=== PATIENT | female | born 1995 | race American Indian/Alaskan Native ===

== ENCOUNTER 2019-10-27 09:21 | Day surgery (SDC) | payer MEDICAID ==
[2019-10-27 11:20] LABS: Eosinophils % (Auto) 0.9 % (0.0-4.3); Hematocrit 38.1 % (30.3-42.9); Hemoglobin 12.7 gm/dl (10.1-14.3); Lymphocytes # (Auto) 1.7 K/mm3 (1.2-5.4); Lymphocytes % (Auto) 33.3 % (13.4-35.0); Mean Corpuscular HGB Conc 34 % (30-34); Mean Corpuscular Volume 88 fl (79-97); Monocytes # (Auto) 0.4 K/mm3 (0.0-0.8); Monocytes % (Auto) 7.6 % (0.0-7.3); Platelet Count 303 K/mm3 (140-440); Red Blood Count 4.34 M/mm3 (3.65-5.03); Red Cell Distribution Width 12.9 % (13.2-15.2)
[2019-10-27 11:57] LABS: BUN/Creatinine Ratio 13; Blood Urea Nitrogen 8 mg/dL (7-17); Calcium 9.9 mg/dL (8.4-10.2); Hemolysis Index 8
--- NOTE | 2019-10-27 12:39 | Emergency Department Report ---
ED HPI - General Chief complaint: Vaginal Bleeding Stated complaint: 7 WEEKS PREG, BLEEDING Time Seen by Provider: 10/27/19 11:24 Source: patient Mode of arrival: Ambulatory Limitations: No Limitations - History of Present Illness Initial comments: 24-year-old -[place] female presents with complaints of vaginal bleeding during x3 days. She states she has had light spotting with mild abdominal cramping. She rates her pain as a 5/10 in severity. She is A0. 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 She denies any fever, dysuria, hematuria, urinary frequen cy, vaginal discharge, dyspareunia, or nausea/vomiting/diarrhea. MD Complaint: abdominal pain, vaginal bleeding -: Sudden Associated symptoms: vaginal bleeding. denies: nausea/vomiting, vaginal discharge - Related Data Allergies Allergy/AdvReac Type Severity Reaction Status Date / Time No Known Allergies Allergy Unverified 10/27/19 09:39 ED Review of Systems ROS: Stated complaint: 7 WEEKS PREG, BLEEDING Other details as noted in HPI Constitutional: denies: chills, fever Respiratory: denies: cough, shortness of breath Cardiovascular: denies: chest pain Endocrine: denies: excessive sweating Gastrointestinal: abdominal pain. denies: nausea, vomiting, diarrhea, constipation, hematemesis, melena, hematochezia Musculoskeletal: denies: back pain, joint swelling Skin: denies: rash, lesions Neurological: denies: headache, weakness Hematological/Lymphatic: denies: easy bleeding, easy bruising ED Past Medical Hx - Past Medical History Previous Medical History?: Yes Additional medical history: Childbirth by - Surgical History Past Surgical History?: Yes Additional Surgical History: - Social History Smoking Status: Never Smoker Substance Use Type: Alcohol ED Physical Exam - General Limitations: No Limitations General appearance: alert, in no apparent distress - Head Head exam: Present: atraumatic, normocephalic - Eye Eye exam: Present: normal appearance. Absent: scleral icterus - ENT ENT exam: Present: mucous membranes moist - Neck Neck exam: Present: normal inspection - Respiratory Respiratory exam: Present: normal lung sounds bilaterally. Absent: respiratory distress - Cardiovascular Cardiovascular Exam: Present: regular rate, normal rhythm. Absent: systolic murmur, diastolic murmur, rubs, gallop - GI/Abdominal GI/Abdominal exam: Present: soft, tenderness (Mild suprapubic), normal bowel sounds. Absent: distended, guarding, rebound, rigid - Extremities Exam Extremities exam: Present: normal inspection. Absent: calf tenderness (No swelling/edema noted) - Back Exam Back exam: Present: normal inspection - Neurological Exam Neurological exam: Present: alert, oriented X3 - Psychiatric Psychiatric exam: Present: normal affect, normal mood - Skin Skin exam: Present: warm, dry, intact, normal color. Absent: rash ED Course Vital Signs 10/27/19 10/27/19 10/27/19 09:31 14:01 14:04 Temperature 98.3 F Pulse Rate 78 65 64 Respiratory 18 16 20 Rate Blood Pressure 112/37 Blood Pressure 121/75 [Left] O2 Sat by Pulse 99 100 100 Oximetry ED Medical Decision Making - Lab Data Result diagrams: 10/27/19 10:51 10/27/19 10:51 Lab Results 10/27/19 10/27/19 10/27/19 Range/Units 10:51 10:51 10:51 WBC 5.0 (4.5-11.0) K/mm3 RBC 4.34 (3.65-5.03) M/mm3 Hgb 12.7 (10.1-14.3) gm/dl Hct 38.1 (30.3-42.9) % MCV 88 (79-97) fl MCH 29 (28-32) pg MCHC 34 (30-34) % RDW 12.9 L (13.2-15.2) % Plt Count 303 (140-440) K/mm3 Lymph % (Auto) 33.3 (13.4-35.0) % Ray % (Auto) 7.6 H (0.0-7.3) % Eos % (Auto) 0.9 (0.0-4.3) % Baso % (Auto) 1.0 (0.0-1.8) % Lymph # 1.7 (1.2-5.4) K/mm3 Ray # 0.4 (0.0-0.8) K/mm3 Eos # 0.0 (0.0-0.4) K/mm3 Baso # 0.0 (0.0-0.1) K/mm3 Seg Neutrophils % 57.2 (40.0-70.0) % Seg Neutrophils # 2.8 (1.8-7.7) K/mm3 PT (12.2-14.9) Sec. INR (0.87-1.13) APTT (24.2-36.6) Sec. Sodium (137-145) mmol/L Potassium (3.6-5.0) mmol/L Chloride (98-107) mmol/L Carbon Dioxide (22-30) mmol/L Anion Gap mmol/L BUN (7-17) mg/dL Creatinine (0.7-1.2) mg/dL Estimated GFR ml/min BUN/Creatinine Ratio % Glucose (65-100) mg/dL Calcium (8.4-10.2) mg/dL HCG, Quant 63399 H (0-4) mIU/mL Urine Color (Yellow) Urine Turbidity (Clear) Urine pH (5.0-7.0) Ur Specific [place] (1.003-1.030) Urine Protein (Negative) mg/dL Urine Glucose (UA) (Negative) mg/dL Urine Ketones (Negative) mg/dL Urine Blood (Negative) Urine Nitrite (Negative) Urine Bilirubin (Negative) Urine Urobilinogen (<2.0) mg/dL Ur Leukocyte Esterase (Negative) Urine WBC (Auto) (0.0-6.0) /HPF Urine RBC (Auto) (0.0-6.0) /HPF U Epithel Cells (Auto) (0-13.0) /HPF Urine Bacteria (Auto) (Negative) /HPF Urine Mucus /HPF Blood Type O NEGATIVE Antibody Screen Cancelled Screen Cancelled 10/27/19 10/27/19 10/27/19 Range/Units 10:51 13:05 13:08 WBC (4.5-11.0) K/mm3 RBC (3.65-5.03) M/mm3 Hgb (10.1-14.3) gm/dl Hct (30.3-42.9) % MCV (79-97) fl MCH (28-32) pg MCHC (30-34) % RDW (13.2-15.2) % Plt Count (140-440) K/mm3 Lymph % (Auto) (13.4-35.0) % Ray % (Auto) (0.0-7.3) % Eos % (Auto) (0.0-4.3) % Baso % (Auto) (0.0-1.8) % Lymph # (1.2-5.4) K/mm3 Ray # (0.0-0.8) K/mm3 Eos # (0.0-0.4) K/mm3 Baso # (0.0-0.1) K/mm3 Seg Neutrophils % (40.0-70.0) % Seg Neutrophils # (1.8-7.7) K/mm3 PT 13.3 (12.2-14.9) Sec. INR 1.00 (0.87-1.13) APTT 27.6 (24.2-36.6) Sec. Sodium 135 L (137-145) mmol/L Potassium 4.6 (3.6-5.0) mmol/L Chloride 100.4 (98-107) mmol/L Carbon Dioxide 20 L (22-30) mmol/L Anion Gap 19 mmol/L BUN 8 (7-17) mg/dL Creatinine 0.6 L (0.7-1.2) mg/dL Estimated GFR > 60 ml/min BUN/Creatinine Ratio 13 % Glucose 77 (65-100) mg/dL Calcium 9.9 (8.4-10.2) mg/dL HCG, Quant (0-4) mIU/mL Urine Color (Yellow) Urine Turbidity (Clear) Urine pH (5.0-7.0) Ur Specific [place] (1.003-1.030) Urine Protein (Negative) mg/dL Urine Glucose (UA) (Negative) mg/dL Urine Ketones (Negative) mg/dL Urine Blood (Negative) Urine Nitrite (Negative) Urine Bilirubin (Negative) Urine Urobilinogen (<2.0) mg/dL Ur Leukocyte Esterase (Negative) Urine WBC (Auto) (0.0-6.0) /HPF Urine RBC (Auto) (0.0-6.0) /HPF U Epithel Cells (Auto) (0-13.0) /HPF Urine Bacteria (Auto) (Negative) /HPF Urine Mucus /HPF Blood Type O NEGATIVE Antibody Screen Negative Screen 10/27/19 Range/Units Unknown WBC (4.5-11.0) K/mm3 RBC (3.65-5.03) M/mm3 Hgb (10.1-14.3) gm/dl Hct (30.3-42.9) % MCV (79-97) fl MCH (28-32) pg MCHC (30-34) % RDW (13.2-15.2) % Plt Count (140-440) K/mm3 Lymph % (Auto) (13.4-35.0) % Ray % (Auto) (0.0-7.3) % Eos % (Auto) (0.0-4.3) % Baso % (Auto) (0.0-1.8) % Lymph # (1.2-5.4) K/mm3 Ray # (0.0-0.8) K/mm3 Eos # (0.0-0.4) K/mm3 Baso # (0.0-0.1) K/mm3 Seg Neutrophils % (40.0-70.0) % Seg Neutrophils # (1.8-7.7) K/mm3 PT (12.2-14.9) Sec. INR (0.87-1.13) APTT (24.2-36.6) Sec. Sodium (137-145) mmol/L Potassium (3.6-5.0) mmol/L Chloride (98-107) mmol/L Carbon Dioxide (22-30) mmol/L Anion Gap mmol/L BUN (7-17) mg/dL Creatinine (0.7-1.2) mg/dL Estimated GFR ml/min BUN/Creatinine Ratio % Glucose (65-100) mg/dL Calcium (8.4-10.2) mg/dL HCG, Quant (0-4) mIU/mL Urine Color Yellow (Yellow) Urine Turbidity Slightly-cloudy (Clear) Urine pH 6.0 (5.0-7.0) Ur Specific [place] 1.027 (1.003-1.030) Urine Protein 30 mg/dl (Negative) mg/dL Urine Glucose (UA) Neg (Negative) mg/dL Urine Ketones 20 (Negative) mg/dL Urine Blood Lg (Negative) Urine Nitrite Neg (Negative) Urine Bilirubin Neg (Negative) Urine Urobilinogen < 2.0 (<2.0) mg/dL Ur Leukocyte Esterase Neg (Negative) Urine WBC (Auto) 2.0 (0.0-6.0) /HPF Urine RBC (Auto) 24.0 (0.0-6.0) /HPF U Epithel Cells (Auto) 10.0 (0-13.0) /HPF Urine Bacteria (Auto) 1+ (Negative) /HPF Urine Mucus 3+ /HPF Blood Type Antibody Screen Screen - Radiology Data Radiology results: report reviewed FINDINGS: GESTATIONAL SAC: No intrauterine . Well-defined gestational sac in the right adnexa. YOLK SAC: Yolk sac visualized in the right adnexa gestational sac. EMBRYO/FETUS: Embryonic pole in the right adnexa gestational sac. - [place]-Rump Length = 1.25 cm = 7.3 weeks.days - Heart Rate, beats per minute (if present) = 203 ADNEXA: Gestational sac containing pole with cardiac activity in the right adnexa. Small left ovarian follicle versus cyst. FREE FLUID: No free fluid or hemorrhage in the pelvis. ADDITIONAL FINDINGS: None. IMPRESSION: 1. No intrauterine . 2. Right adnexal ectopic with estimated sonographic age of 7.3 weeks/days. CRITICAL RESULT: Time of Discovery (FREIGHT RATE ANALYST/CDT): 12:45 PM Time of Communication (FREIGHT RATE ANALYST/CDT): 12:48 PM Licensed Practitioner Receiving Report: Eleazar Soni in the ED Read Back Performed: Yes. - Medical Decision Making 24-year-old female patient here today with vaginal bleeding and lower abdominal cramping pain x 3 days. Hemoglobin = 12.7. Beta-hCG noted to be around 42,000. Right adnexal ectopic with pole noted on ultrasound. Discussed patient with Dr. Kaur, WIRE STITCHER OPERATOR -agrees with ad mission and surgical intervention. NPO orders placed. Vitals are normal and patient is nontoxic-appearing. Critical care attestation.: If time is entered above; I have spent that time in minutes in the direct care of this critically ill patient, excluding procedure time. ED Disposition Clinical Impression: Ectopic of right ovary Disposition: DC-09 OP ADMIT IP TO THIS HOSP Is pt being admited?: Yes Condition: Stable Referrals: PRIMARY CARE, [Primary Care Provider] - 3-5 Days
[2019-10-27 13:39] LABS: Partial Thromboplastin Time 27.6 Sec. (24.2-36.6)
[2019-10-27 13:46] LABS: Bacteria,Urine 1+ /HPF (Negative); Bilirubin,Urine NEG (Negative); Blood,Urine LG (Negative); Color,Urine Yellow (Yellow); Mucus,Urine 3+ /HPF; Urobilinogen,Urine < 2.0 mg/dL (<2.0)
[2019-10-27] MEDS ORDERED: SODIUM CHLORIDE 0.9% 1000 ML 1,000 ML IV ONE (13:52)
--- NOTE | 2019-10-27 13:54 | Ultrasound Report ---
ULTRASOUND OBSTETRIC INDICATION / CLINICAL INFORMATION: vaginal bleeding and cramping. TECHNIQUE: Transabdominal and Transvaginal. COMPARISON: None available. FINDINGS: GESTATIONAL SAC: No intrauterine . Well-defined gestational sac in the right adnexa. YOLK SAC: Yolk sac visualized in the right adnexa gestational sac. EMBRYO/FETUS: Embryonic pole in the right adnexa gestational sac. - [place]-Rump Length = 1.25 cm = 7.3 weeks.days - Heart Rate, beats per minute (if present) = 203 ADNEXA: Gestational sac containing pole with cardiac activity in the right adnexa. Small left o varian follicle versus cyst. FREE FLUID: No free fluid or hemorrhage in the pelvis. ADDITIONAL FINDINGS: None. IMPRESSION: 1. No intrauterine . 2. Right adnexal ectopic with estimated sonographic age of 7.3 weeks/days. CRITICAL RESULT: Time of Discovery (DATA CLERK/CDT): 12:45 PM Time of Communication (DATA CLERK/CDT): 12:48 PM Licensed Practitioner Receiving Report: Eleazar Soni in the ED Read Back Performed: Yes. Signer Name: Shu Burgos MD Signed: 10/27/2019 1:49 PM Workstation Name: [id number]
--- NOTE | 2019-10-27 13:54 | Ultrasound Report ---
ULTRASOUND OBSTETRIC INDICATION / CLINICAL INFORMATION: vaginal bleeding and cramping. TECHNIQUE: Transabdominal and Transvaginal. COMPARISON: None available. FINDINGS: GESTATIONAL SAC: No intrauterine . Well-defined gestational sac in the right adnexa. YOLK SAC: Yolk sac visualized in the right adnexa gestational sac. EMBRYO/FETUS: Embryonic pole in the right adnexa gestational sac. - [place]-Rump Length = 1.25 cm = 7.3 weeks.days - Heart Rate, beats per minute (if present) = 203 ADNEXA: Gestational sac containing pole with cardiac activity in the right adnexa. Small left o varian follicle versus cyst. FREE FLUID: No free fluid or hemorrhage in the pelvis. ADDITIONAL FINDINGS: None. IMPRESSION: 1. No intrauterine . 2. Right adnexal ectopic with estimated sonographic age of 7.3 weeks/days. CRITICAL RESULT: Time of Discovery (ASSISTANT ACCOUNT MANAGER/CDT): 12:45 PM Time of Communication (ASSISTANT ACCOUNT MANAGER/CDT): 12:48 PM Licensed Practitioner Receiving Report: Eleazar Soni in the ED Read Back Performed: Yes. Signer Name: Shu Burgos MD Signed: 10/27/2019 1:49 PM Workstation Name: [id number]
--- NOTE | 2019-10-27 15:01 | History and Physical Report ---
History of Present Illness Date of examination: 10/27/19 Date of admission: 10/27/2019 Chief complaint: Vaginal bleeding and pelvic pain History of present illness: 24yo at ~7 weeks with a right ectopic . Patient with vaginal bleeding and mild pelvic pain. Findings include: +ve right ectopic at ~7+3/7 weeks, +ve pole, +ve cardiac activity BHCG >42,000. H/H: 12.7/38.1 Past History Past Surgical History: section Family/Genetic History: none Social history: no significant social history - Obstetrical History : 2 Para: 1 Medications and Allergies Allergies Allergy/AdvReac Type Severity Reaction Status Date / Time No Known Allergies Allergy Unverified 10/27/19 09:39 Review of Systems All systems: negative (vaginal bleeding and pelvic pain) - Vital Signs Vital signs: Vital Signs Temp Pulse Resp BP Pulse Ox 98.3 F 78 18 112/37 99 10/27/19 09:31 10/27/19 09:31 10/27/19 09:31 10/27/19 09:31 10/27/19 09:31 Temp Pulse Resp BP Pulse Ox 98.3 F 64 20 121/75 100 10/27/19 09:31 10/27/19 14:04 10/27/19 14:04 10/27/19 14:01 10/27/19 14:04 - Physical Exam Breasts: Positive: deferred Cardiovascular: Regular rate Lungs: Positive: Clear to auscultation Abdomen: Positive: normal appearance, soft, tenderness (mild RLQ tenderness to deep palpation) Genitourinary (Female): Positive: normal external genitalia Vagina: Positive: normal moisture Deep Tendon Reflex Grade: Normal +2 Results Result Diagrams: 10/27/19 10:51 10/27/19 10:51 Abnormal lab results 10/27/19 10/27/19 10/27/19 Range/Units 10:51 10:51 10:51 RDW 12.9 L (13.2-15.2) % [place] % (Auto) 7.6 H (0.0-7.3) % Sodium 135 L (137-145) mmol/L Carbon Dioxide 20 L (22-30) mmol/L Creatinine 0.6 L (0.7-1.2) mg/dL HCG, Quant 22485 H (0-4) mIU/mL All other labs normal. Ultrasound: report reviewed, image reviewed Assessment and Plan Right Ectopic Patient counseled for operative vs medical management. I recommend operative management at this time given her BHCG and +ve cardiac activity. She understands the possibility of the need to remove the entire right adnexa depending on the extent of her ectopic. I will try to be as fertility sparing as possible. She is counseling for possible exploratory laparotomy if necessary.I have explained the need for a D&C at the same time for removal of her intrauterine decidual reaction. She acknowledges understanding, is hemodynamically stable and NPO center consultant to the OR. Gurvinder SANTANA
[2019-10-27] MEDS ORDERED: SUCCINYLCHOLINE CHLORIDE 200 MG/10 ML INJ MDV ONE (16:05)
[2019-10-27] MEDS ORDERED: propofoL 200 MG/20 ML VIAL IV ONE (16:05)
[2019-10-27] MEDS ORDERED: fentaNYL 100 MCG/2 ML INJ ONE (16:06)
[2019-10-27] MEDS ORDERED: dexAMETHasone 20 MG/5 ML VIAL ONE (16:06)
[2019-10-27] MEDS ORDERED: ONDANSETRON 4 MG/2 ML INJ ONE (16:06)
--- NOTE | 2019-10-27 16:07 | Anesthesia Day of Surgery ---
Anesthesia Day of Surgery - Day of Surgery Patient Examined: Yes Patient H&P Reviewed: Yes Patient is NPO: No (Mayank an hour ago)
[2019-10-27] MEDS ORDERED: ONDANSETRON 4 MG/2 ML INJ IV PRN ×2 (16:09→18:31)
--- NOTE | 2019-10-27 16:09 | Anesthesia Consultation ---
Anesthesia Consult and Med Hx Date of service: 10/27/19 - Airway Anesthetic Teeth Evaluation: Good ROM Head & Neck: Adequate Mental/Hyoid Distance: Adequate Mallampati Class: Class III Intubation Access Assessment: Probably Good - Pre-Operative Health Status ASA Pre-Surgery Classification: ASA2, Emergency Proposed Anesthetic Plan: General - Additional Comments Anesthesia Medical History Comments: Not NPO-Had Cheetos an hour ago
[2019-10-27] MEDS ORDERED: BUPIVACAINE/PF (0.5%) 5 MG/1 ML 30 ML VIAL INFILTRATI ONE ×3 (16:20→17:34)
[2019-10-27] MEDS ORDERED: KETOROLAC 30 MG/1 ML INJ ONE ×2 (16:38→17:50)
[2019-10-27] MEDS ORDERED: METOCLOPRAMIDE 10 MG/2 ML INJ ONE (16:38)
[2019-10-27] MEDS ORDERED: ROCURONIUM 50 MG/5 ML INJ IV ONE (16:38)
[2019-10-27] MEDS ORDERED: ceFAZolin 1 GM VIAL ONE (16:48)
[2019-10-27] MEDS ORDERED: METOCLOPRAMIDE 10 MG/2 ML INJ IV NR (17:00)
[2019-10-27] MEDS ORDERED: FAMOTIDINE 20 MG/2 ML INJ IV ONE (17:00)
[2019-10-27] MEDS ORDERED: BICITRA ORAL LIQD 30ML PO ONE (17:11)
[2019-10-27] MEDS ORDERED: SODIUM CHLORIDE 0.9% IRRIG SOLN 2000 ML IR ONE (17:34)
[2019-10-27] MEDS ORDERED: NEOSTIGMINE 10MG/10 ML INJ MDV ONE (17:50)
[2019-10-27] MEDS ORDERED: GLYCOPYRROLATE 0.4 MG/2 ML INJ ONE ×4 (17:50→17:54)
--- NOTE | 2019-10-27 18:27 | Operative Report ---
Operative Report Operative Report: Preoperative Diagnosis: right ectopic at 7+3/7 weeks, +ve cardiac activity Postoperative Diagnosis: Same Procedure: Operative laparoscopy, right salpingectomy, removal of right ectopic , Dilatation and Curettage of the Uterus Surgeon: Dr Kemi Bryant Assist: Scrub Anesthesia: GET Complications: none EBL 20ml IV fluids 1200ml Urine Output 400ml Complications: none Drains: none Findings: right ectopic (not ruptured), normal right ovary, normal uterus and left ovary and fallopian tube, pelvic adhesions noted from previous c/section. Patient taken to the OR after informed consent was obtained. She was given excellent general anesthesia, placed in the dorsal lithotomy position, prepped and draped in a sterile fashion. A time out was verified. A paulino catheter was placed with adequate clear urine return noted. A speculum placed in the vagina and a single toothed tenaculum grasped the anterior lip of the cervix and an [place] uterine manipulator placed in the endocervix atraumatically. Attention turned to the abdomen. An infaumbilical skin incision was made with a scalpel and taken down to the fascia which was incised in the midline. A Veress needle was placed atraumtically; placement confirmed with normal saline. Adequate pneumoperitoneum obtained. A 10mm trochar was placed in the abdomen, entry confirmed atraumatic with the camera. Left and right lateral suprapubic ports were placed atraumatically under direct visualization. Inspection of the pelvis revealed: The uterus and left fallopian tube and ovary were noted to be without pathology, the right fallopian tube dilated with the ectopic but not ruptured and the right ovary noted to not be encompassing the ectopic or fallopian tube. The ectopic was grasped with an atraumatic grasper and the ectoptic/fallopian tube removed with cautery along the mesosalpix with the Ligasure. Excellent hemostasis. An endocatch bag was used to remove the ectopic and fallopian tube with no intraperitoneal spillage. The suture line was confirmed hemostatic and the trochars and camera were removed.The umbilical fascia closed with 0-vicryl and the skin closed with monocryl. The lateral port incisions were closed with subcuticular figure of eight sutures of 0-vicryl and dermabond. Attention turned to the vagina. A speculum placed in the vagina, the tenaculum and [place] manipulator removed and a sharp endometrial curettage performed. The ectopic, fallopian tube and endometrial curettings were sent to pathology. The paulino catheter removed and the patient extubated. She was taken to the recovery area in stable condition. Ibuprofen rx given for pain. All sponge, needle and instrument counts were correct x2. EBL 20ml. No complications. Patient stable to PACU. Gurvinder SANTANA
[2019-10-27] MEDS ORDERED: HYDROmorphone 1 MG/1 ML INJ IV PRN (18:31)
[2019-10-27] MEDS: HYDROmorphone 1 MG/1 ML INJ IV PRN ×2 (18:32→18:50)
[2019-10-27] MEDS ORDERED: HYDROmorphone 1 MG/1 ML INJ ONE (18:33)
[2019-10-27 19:02] VITALS: BP 102/56
--- NOTE | 2019-10-27 19:40 | Post Anesthesia Evaluation ---
- Post Anesthesia Evaluation Patient Participated: Yes Airway Patent: Yes Stable Respiratory Function: Yes Nausea/Vomiting: No Temp > 96.8F: Yes Pain Manageable: Yes Adequeate Hydration: Yes Anesthesia Complications: No Block Receding Appropriately: Not Applicable Patient on Ventilator: No
== END 2019-10-27 18:49 | disposition home or self-care (01) ==
LOC: ED 09:21 → OR 18:48
PROVIDERS: ATTEND Obstetrics & Gynecology
DX: O00.90 Unspecified ectopic pregnancy without intrauterine pregnancy (principal); N93.9 Abnormal uterine and vaginal bleeding, unspecified; Z98.891 History of uterine scar from previous surgery; Z3A.01 Less than 8 weeks gestation of pregnancy; Z79.899 Other long term (current) drug therapy
CPT/HCPCS: 36415; 58120; 59151; 76801; 76817; 80048; 81001; 84702; 85025; 85610; 85730; 86850; 86900; 86901; 88305; A4217; J0330; J0690; J1100; J1170; J1885; J2405; J2704; J2710; J2765; J3010; J7030